=== PATIENT | female | born 1970 | race Hispanic/Latino ===

== ENCOUNTER 2021-04-02 08:38 | Outpatient (CLI) | payer BC | END 2021-04-02 08:39 | disposition home or self-care (01) | LOC: CSHMRI 08:38 | PROVIDERS: ATTEND Physician Assistant Medical | DX: K80.50 Calculus of bile duct without cholangitis or cholecystitis without obstruction (principal); K21.9 Gastro-esophageal reflux disease without esophagitis; R10.11 Right upper quadrant pain; K76.9 Liver disease, unspecified; N28.1 Cyst of kidney, acquired | CPT/HCPCS: 74183 ==

== ENCOUNTER 2021-10-06 07:42 | Outpatient (CLI) | payer BC ==
[2021-10-06] MEDS ORDERED: Iopamidol 300 61% 100 ML VIAL FS ONE (14:53)
== END 2021-10-06 07:43 | disposition home or self-care (01) ==
LOC: CSHCT 07:42
PROVIDERS: ATTEND Family Medicine Sports Medicine
DX: R31.9 Hematuria, unspecified (principal)
CPT/HCPCS: 74178; Q9967